=== PATIENT | female | born 1995 | race Caucasian/White ===

== ENCOUNTER 2021-04-27 16:10 | Emergency (ER) | payer MEDICAID, SELFPAY ==
[2021-04-27 16:49] VITALS: BP 123/80; PULSE 105; RESP 22; TEMP 37; O2SAT 100
[2021-04-27 19:16] VITALS: BP 142/86; PULSE 107; RESP 20; O2SAT 97
--- NOTE | 2021-04-27 20:39 | ED.GENADULT ---
HPI - General Adult General Chief complaint: Upper Respiratory Infection <Francine Ramos PA-C - Last Filed: 04/27/21 20:40> Stated complaint: cough, sore throat <Francine Ramos PA-C - Last Filed: 04/27/21 20:40> Time Seen by Provider: 04/27/21 18:21 <Francine Ramos PA-C - Last Filed: 04/27/21 20:40> Source: patient <Francine Ramos PA-C - Last Filed: 04/27/21 20:40> Mode of arrival: ambulatory <Francine Ramos PA-C - Last Filed: 04/27/21 20:40> Limitations: no limitations <SHANTE Chaudhary Last Filed: 04/27/21 20:40> History of Present Illness HPI narrative: Patient presents with chief complaint of cough congestion and runny nose that began on Wednesday. Patient also has hoarse voice. Patient denies any shortness of breath or chest pain. She has not been vaccinated against Covid. Her child has similar symptoms. Patient denies any chronic medical conditions. <Francine Ramos PA-C - Last Filed: 04/27/21 20:40> Related Data Allergies/adverse reactions: Allergies Allergy/AdvReac Type Severity Reaction Status Date / Time Cephalosporins Allergy Mild Unknown Unverified 04/27/21 19:16 <Francine Ramos PA-C - Last Filed: 04/27/21 20:40> Review of Systems Review of Systems: CONSTITUTIONAL: Denies fever, chills, or sweats. EYES: Denies visual changes, redness, or discharge. ENT: Reports rhinorrhea, congestion, sore throat CARDIOVASCULAR: Denies chest pain, palpitations, or edema. RESPIRATORY: Reports cough denies dyspnea. GASTROINTESTINAL: Denies abdominal pain, nausea, vomiting, or diarrhea. GENITOURINARY: Denies dysuria or hematuria. SKIN: Denies rash or itching. MUSCULOSKELETAL: Denies back pain, joint pain, or myalgia. NEUROLOGIC: Denies headache, numbness, dizziness, or weakness. PSYCHIATRIC: Denies anxiety or depression. <SHANTE Chaudhary Last Filed: 04/27/21 20:40> Exam Narrative: GENERAL: Well-appearing, well-nourished, and in no acute distress. HEAD: Normocephalic, atraumatic. EYES: PERRLA and EOMI. ENT: Nares clear, no rhinorrhea or epistaxis. Mucous membranes moist. Bilateral TMs pearly daley nonbulging NECK: Supple. No adenopathy or masses. No carotid bruits or JVD CHEST: Patient speaking and breathing without distress or discomfort. No respiratory distress. No wheezes rales or rhonchi EXTREMITIES: Normal range of motion. No edema. SKIN: Warm, dry, no rash. NEURO: No focal deficits. Alert and oriented x3. PSYCH: Normal mood and affect. <Francine Ramos PA-C - Last Filed: 04/27/21 20:40> Course Vital Signs Vital signs: Vital Signs Temperature 98.6 F 04/27/21 16:49 Pulse Rate 105 H 04/27/21 16:49 Respiratory Rate 22 H 04/27/21 16:49 Blood Pressure 123/80 04/27/21 16:49 Pulse Oximetry 100 04/27/21 16:49 Temperature 98.6 F 04/27/21 16:49 Pulse Rate 107 H 04/27/21 19:16 Respiratory Rate 20 04/27/21 19:16 Blood Pressure 142/86 H 04/27/21 19:16 Pulse Oximetry 97 04/27/21 19:16 <Francine Ramos PA-C - Last Filed: 04/27/21 20:40> Medical Decision Making MDM Narrative Medical decision making narrative: Patient given quarantine and follow-up instructions. Patient to return to emergency department if she has any emergent symptoms. <Francine Ramos PA-C - Last Filed: 04/27/21 20:40> Vital Signs Vital Signs: Vital Signs Temperature 98.6 F 04/27/21 16:49 Pulse Rate 105 H 04/27/21 16:49 Respiratory Rate 22 H 04/27/21 16:49 Blood Pressure 123/80 04/27/21 16:49 Pulse Oximetry 100 04/27/21 16:49 Temperature 98.6 F 04/27/21 16:49 Pulse Rate 107 H 04/27/21 19:16 Respiratory Rate 20 04/27/21 19:16 Blood Pressure 142/86 H 04/27/21 19:16 Pulse Oximetry 97 04/27/21 19:16 <Francine Ramos PA-C - Last Filed: 04/27/21 20:40> Lab Data Labs: Lab Results 04/27/21 Range/Units 19:53 SARS-CoV-2 RNA (RT-PCR) Pending <Francine Ramos PA-C - Last Filed: 04/09
[2021-04-28 19:01] LABS: SARS-CoV-2 RNA PCR Negative
== END 2021-04-27 20:03 | disposition home or self-care (01) ==
PROVIDERS: Physician Assistant; Emergency Provider General Practice; PCP Internal Medicine
DX: B34.9 Viral infection, unspecified (principal); Z20.822 Contact with and (suspected) exposure to COVID-19
CPT/HCPCS: 99283; C9803; U0003; U0005